=== PATIENT | female | born 1970 | race Caucasian/White ===

== ENCOUNTER 2016-07-16 12:22 | Emergency (ER) | payer OTHER ==
[~2016-07-16] VITALS: Ht 162.6 cm; Wt 81.6 kg
[~2016-07-16 12:22] MED LIST: ALBUTEROL0.09 MG/A1 INH; CIPRO500 M1 PO; LEVAQUIN500 MG PO; PREDNISONE 10MG10 M1 PO; PREDNISONE50 MG PO; PRILOSEC20 M1 PO; SUPRAX200 MG PO; TESSALON PERLE100 MG PO; ZITHROMAX Z-PA250 M1 PO; ZOFRAN ODT4 M1 PO
[2016-07-16 12:45] VITALS: BP 106/75
--- NOTE | 2016-07-16 13:08 | ED INFLUENZA/URI COMPLAINT ---
History of Present Illness General Chief Complaint: General Adult Stated Complaint: DOESNT FEEL GOOD Source: patient Exam Limitations: no limitations Vital Signs & Intake/Output Vital Signs & Intake/Output Vital Signs Date Time Temp Pulse Resp B/P Pulse O2 O2 Flow FiO2 Ox Delivery Rate 07/16 1245 96.6 110 20 106/75 99 Room Air Room Air Allergies Coded Allergies: codeine (Mild, rash 08/29/15) Sulfa (Sulfonamide Antibiotics) (08/29/15) ciprofloxacin (From CIPRO) (HIVES 09/06/15) Reconcile Medications Albuterol Sulfate (Albuterol Sulfate Hfa) 0.09 MG/Actuation KAUSHIK 2 PUFF INH Q4- 6 PRN PRN SHORTNESS OF BREATH 90 MCG PER PUFF Albuterol Sulfate (Albuterol Sulfate Hfa) 90 MCG HFA.AER.AD 2 PUFF INH Q4-6 PRN PRN SHORTNESS OF BREATH 90 MCG PER PUFF Azithromycin (Zithromax Z-Krzysztof) 250 MG CAP 1 DP PO AD bronchitis 2 the first day followed by 1 for days 2-5 Benzonatate (Tessalon Perle) 100 MG SGL 1 CAP PO TID PRN COUGH Benzonatate (Tessalon Perle) 100 MG CAPSULE 1 TAB PO TID PRN COUGH Cefixime (Suprax) 200 MG TAB.CHEW 1 TAB PO DAILY pyelonephritis Ciprofloxacin HCl (Cipro) 500 MG TABLET 1 TAB PO BID UROLOGIC Levofloxacin (Levaquin) 500 MG TAB 1 TAB PO QDAY BRONCHITIS Omeprazole (Prilosec) 20 MG CAPSULE.DR 1 CAP PO DAILY GERD Ondansetron (Zofran Odt) 4 MG TAB.RAPDIS 1-2 TAB PO Q8H PRN NAUSEA Prednisone 50 MG TAB 1 TAB PO QDAY QDAY Prednisone 10 MG TABLET 1 TAB PO DAILY BRONCHITIS 4 TABS PO X 3 DAYS 3 TABS PO X 3 DAYS 2 TABS PO X 3 DAYS 1 TAB PO X 3 DAYS Triage Note: PT TO ED WITH C/O COUGH AND CONGESTION, SEEN AT [facility] CLINIC, GIVEN Z-PACK, HAS 1 PILL LEFT, NOW THEY CALLED IN PREDNISONE AND COUGH MEDS, HASN'T PICKED IT UP LEFT. Triage Nurses Notes Reviewed? yes Onset: Gradual Duration: constant Timing: recent history Severity: moderate Severity Numbers: 5 HPI: Patient is a 46-year-old female who presents emergency room stating that for the past week patient has been complaining of nasal congestion and head congestion cough and low-grade fever body aches chills in which she was administered a azithromycin pack which she is on her last day where she feels no better. Negative sick contacts. (NATALEE HOANG) Past History Travel History Traveled to [place] past 21 day No Medical History Any Pertinent Medical History? see below for history Neurological: NONE EENT: NONE Cardiovascular: hyperlipidemia Respiratory: NONE Gastrointestinal: GERD Hepatic: NONE Renal: urinary tract infections Musculoskeletal: NONE Psychiatric: NONE Endocrine: NONE Blood Disorders: NONE Cancer(s): NONE CLINICAL SUPERVISOR/Reproductive: NONE Surgical History Surgical History: NONE Psychosocial History What is your primary language Japanese Tobacco Use: Current Daily Use Daily Tobacco Use Amount/Type: => 5 Cigarettes daily ETOH Use: denies use Illicit Drug Use: denies illicit drug use Family History Hx Contributory? No (NATALEE HOANG) Review of Systems Review of Systems Constitutional: Reports: see HPI, chills, fever. EENTM: Reports: see HPI, nasal congestion. Respiratory: Reports: see HPI, cough. Cardiovascular: Reports: see HPI. Denies: chest pain. GI: Reports: no symptoms. Genitourinary: Reports: no symptoms. Musculoskeletal: Reports: no symptoms. Skin: Reports: no symptoms. Neurological/Psychological: Reports: no symptoms. Hematologic/Endocrine: Reports: no symptoms. Immunologic/Allergic: Reports: no symptoms. All Other Systems: Reviewed and Negative (NATALEE HOANG) Physical Exam Physical Exam General Appearance: no apparent distress, comfortable Head: atraumatic Eyes: Bilateral: normal appearance. Ears, Nose, Throat: nasal congestion Neck: normal inspection Respiratory: no respiratory distress Back: normal inspection Extremities: normal inspection Neurologic/Psych: no motor/sensory deficits Skin: intact, normal color Core Measures Severe Sepsis Present: No Septic Shock Present: No (NATALEE HOANG) Progress Differential Diagnosis: influenza, meningitis, neutropenia, otitis, pneumonia, pharyngitis, sinusitis Plan of Care: During the encounter patient received a phone call in which there was significant concern and distressed noted from patient and which she states "I need to leave the hospital immediately because my boyfriend is having a heart attack" where patient then eloped and walked out and apologized Initial ED EKG: none (NATALEE HOANG) Departure Departure Disposition: ER WALKOUT Condition: Stable Clinical Impression Primary Impression: Upper respiratory disease Referrals: VELVET PARRA,IVANIA Rodríguez (PCP/Family) Additional Instructions: Patient had eloped prior to discharge instructions Departure Forms: Customer Survey General Discharge Information (NATALEE HOANG) PA/STRIPPER PRELIMINARY Co-Sign Statement Statement: ED Attending supervision documentation- [] I saw and evaluated the patient. I have also reviewed all the pertinent lab results and diagnostic results. I agree with the findings and the plan of care as documented in the PA's/STRIPPER PRELIMINARY's documentation. [X] I have reviewed the ED Record and agree with the PA's/STRIPPER PRELIMINARY's documentation. [] Additions or exceptions (if any) to the PAs/STRIPPER PRELIMINARY's note and plan are summarized below: [] (COLIN PARRA,ARABELLA Ricks)
== END 2016-07-16 13:25 ==
LOC: ERH 12:22
DX: J06.9 Acute upper respiratory infection, unspecified (principal); Z72.0 Tobacco use
CPT/HCPCS: 99281

== ENCOUNTER 2016-12-01 07:47 | Emergency (ER) | payer OTHER ==
[~2016-12-01] VITALS: Ht 162.6 cm; Wt 90.7 kg
[2016-12-01 07:50] VITALS: BP 125/90
--- NOTE | 2016-12-01 07:57 | ED NECK/BACK PAIN COMPLAINT ---
History of Present Illness General Chief Complaint: Low Back Pain/Injury Stated Complaint: BACK PAIN Source: patient, old records Exam Limitations: no limitations Vital Signs & Intake/Output Vital Signs & Intake/Output Vital Signs Date Time Temp Pulse Resp B/P B/P Pulse O2 O2 Flow FiO2 Mean Ox Delivery Rate 12/01 0750 97.7 100 20 125/90 98 Room Air Allergies Coded Allergies: codeine (Mild, rash 08/29/15) Sulfa (Sulfonamide Antibiotics) (UNKNOWN 12/01/16) Reconcile Medications Albuterol Sulfate (Albuterol Sulfate Hfa) 0.09 MG/Actuation KAUSHIK 2 PUFF INH Q4- 6 PRN PRN SHORTNESS OF BREATH 90 MCG PER PUFF Albuterol Sulfate (Albuterol Sulfate Hfa) 90 MCG HFA.AER.AD 2 PUFF INH Q4-6 PRN PRN SHORTNESS OF BREATH 90 MCG PER PUFF Azithromycin (Zithromax Z-Krzysztof) 250 MG CAP 1 DP PO AD bronchitis 2 the first day followed by 1 for days 2-5 Benzonatate (Tessalon Perle) 100 MG SGL 1 CAP PO TID PRN COUGH Benzonatate (Tessalon Perle) 100 MG CAPSULE 1 TAB PO TID PRN COUGH Cefixime (Suprax) 200 MG TAB.CHEW 1 TAB PO DAILY pyelonephritis Ciprofloxacin HCl (Cipro) 500 MG TABLET 1 TAB PO BID UROLOGIC Levofloxacin (Levaquin) 500 MG TAB 1 TAB PO QDAY BRONCHITIS Omeprazole (Prilosec) 20 MG CAPSULE.DR 1 CAP PO DAILY GERD Ondansetron (Zofran Odt) 4 MG TAB.RAPDIS 1-2 TAB PO Q8H PRN NAUSEA Prednisone 50 MG TAB 1 TAB PO QDAY QDAY Prednisone 10 MG TABLET 1 TAB PO DAILY BRONCHITIS 4 TABS PO X 3 DAYS 3 TABS PO X 3 DAYS 2 TABS PO X 3 DAYS 1 TAB PO X 3 DAYS Triage Note: PT TO ED C/O LEFT SIDED BACK PAIN X 3 MONTHS. PT HAS SEEN MD'S AND PAIN MANAGEMENT. PT STATES PAIN HAS GOTTEN WORSE OVER THE LAST FEW DAYS. DENIES ANY NEW INJURY. Triage Nurses Notes Reviewed? yes Onset: Gradual Duration: getting worse Timing: recent history Location: lumbar spine, paraspinous muscles Radiation: buttocks, upper legs, lower legs, feet Loss of Consciousness: no loss of consciousness HPI: Patient is a 46-year-old female who presents to emergency room with concerns of low back pain where she states approximate 3 months ago she was lifting heavy objects where she had acute onset of pain at the time or pain persisted patient states approximately 2 months ago she received a MRI showing bulging disks in which patient has been followed by her primary care doctor in which NSAIDs gabapentin and narcotics have been prescribed patient with improvement of pain however in past 3 days symptoms have worsened. Patient has been complaining of persistent left lower extremity radiating pain and burning sensation in the past 2 months. Patient denies any bowel or bladder incontinence. Patient denies any recent trauma or falls Patient denies any fever chills Patient currently is receiving physical therapy PATIENT: ALTA GIRALDO PRESENT AGE: 46 PATIENT ACCOUNT NO: [id number] : 69 LOCATION: [facility].MRI ORDERING PHYSICIAN: IVANIA VERDIN MD SERVICE DATE: 10/05/16 EXAM TYPE: MRI - MRI-LUMBAR SPINE EXAMINATION: MR LUMBAR SPINE WITHOUT CONTRAST CLINICAL INFORMATION: Low back pain radiating down left leg. COMPARISON: X-ray from 03/02/2016. TECHNIQUE: MRI of the lumbar spine without contrast was obtained using routine sequences. FINDINGS: VERTEBRAL BODIES AND PARASPINAL STRUCTURES: The marrow signal is fairly homogeneous. There are no compression fractures or subluxations. There is mild disc space narrowing and endplate spurring at L2-L3. The paraspinal soft tissues are unremarkable. The imaged bony pelvis appears normal. CONUS MEDULLARIS AND CAUDA EQUINA: Normal, terminating at the level of T12-L1. No lower cord signal abnormality is seen. The cauda equina roots appear normal. SPINAL LEVELS: L1-L2: No disc pathology. No central canal stenosis or foraminal narrowing. L2-L3: Mild loss of disc height and generalized disc bulge with mild facet arthropathy. No central canal stenosis. Bulging disc minimally encroaches upon the left neural foramen. L3-L4: Broad-based left lateral disc protrusion which mildly encroaches upon the left subarticular zone and abuts the left L4 nerve root. Bulging disc mildly encroaches upon the left neural foramen. No central canal stenosis. [id number] facet arthropathy. L4-L5: Reduced intradiscal signal and diffuse disc bulge with a left inferior neural foraminal protrusion. Mild left foraminal encroachment. Bulging disc contacts the left L5 nerve root in the left subarticular zone. Very mild narrowing of the central canal. Moderate facet arthropathy and thickening of the ligamentum flavum. L5-S1: No significant disc pathology. Moderate hypertrophic facet arthrosis. No central canal stenosis or foraminal narrowing. IMPRESSION: Mild spondylosis at L2-L3 with a generalized disc bulge mildly encroaching upon the left neural foramen. Broad-based left lateral disc protrusion at L3-L4 abutting the left L4 nerve root in the subarticular zone. Mild concentric disc bulge and hypertrophic facet arthropathy at L4-L5 with a left inferior neural foraminal disc protrusion. Disc bulge contacts the left L5 nerve root in the subarticular zone. Slight narrowing of the central canal. (NATALEE HOANG) Past History Travel History Traveled to [place] past 21 day No Medical History Any Pertinent Medical History? see below for history Neurological: NONE EENT: NONE Cardiovascular: hyperlipidemia Respiratory: NONE Gastrointestinal: GERD Hepatic: NONE Renal: urinary tract infections Musculoskeletal: chronic back pain Psychiatric: NONE Endocrine: NONE Blood Disorders: NONE Cancer(s): NONE EQUIPMENT MECHANIC SPECIALIST/Reproductive: NONE Surgical History Surgical History: NONE Psychosocial History What is your primary language Khmer Tobacco Use: Current Daily Use Daily Tobacco Use Amount/Type: =< 4 Cigarettes daily ETOH Use: denies use Illicit Drug Use: denies illicit drug use Family History Hx Contributory? No (NATALEE HOANG) Review of Systems Review of Systems Constitutional: Reports: no symptoms. Eyes: Reports: no symptoms. Ears, Nose, Throat, Mouth: Reports: no symptoms. Respiratory: Reports: no symptoms. Cardiovascular: Reports: no symptoms. Gastrointestinal/Abdominal: Reports: no symptoms. Musculoskeletal: Reports: see HPI, back pain, muscle pain, muscle stiffness. Skin: Reports: no symptoms. Neurological/Psychological: Reports: no symptoms. All Other Systems: Reviewed and Negative (NATALEE HOANG) Physical Exam Physical Exam General Appearance: no apparent distress, alert, comfortable Neck: normal inspection, supple, full range of motion Comments: Well-developed well-nourished person in no acute distress HEENT: Normal EENT exam, Neck: Supple, no lymphadenopathy, normal range of motion without pain or tenderness Back: Left lateral lumbar muscular point tenderness, no central spinous tenderness, decreased active range of motion noted Abdomen: Soft, nontender nondistended, no appreciable organomegaly. Normal bowel sounds. No ascites Extremity: No edema, no calf tenderness to palpation, normal and equal pulses. Bilateral lower extremity myotomes dermatomes DTRs intact Positive straight leg raise noted at 45 Neuro: Alert oriented x3, motor sensory normal, Skin: No appreciable rash on exposed skin, skin is warm and dry. Psych: Mood and affect is normal, memory and judgment is normal. (NATALEE HOANG) Progress Differential Diagnosis: C spine injury, carotid dissection, cauda equina syn, herniated disc, myofascial strain, pyelo/UTI, sciatica, spinal cord inj, thoracic outlet syn, T/L spine injury, ureterolithiasis Plan of Care: Current Medications Sig/Pablo Start time Last Medication Dose Stop Time Status Admin Dexamethasone 8 MG ONCE ONE 12/01 814 UNVr (Decadron) 12/02 815 NO CONCERN OF CUADA EQUINA Patient had normal steady gait bilateral lower extremity was neurovascularly intact. Patient will be treated for concerns of herniated disc in lumbar radiculopathy. Patient was strongly advised to follow up and establish pain management. No concerns at this time a discitis or spinal abscess (NATALEE HOANG) Departure Departure Disposition: HOME OR SELF CARE Condition: Stable Clinical Impression Primary Impression: Herniated lumbar intervertebral disc Secondary Impressions: Lumbar radiculopathy Referrals: VELVET PARRA,IVANIA Rodríguez (PCP/Family) SADIA PARRA,YANN Arechiga Additional Instructions: As discussed begin icing the area directly 20 minutes every 2 hours. You have been given an intramuscular injection of Decadron for inflammation in the emergency room, continue your previously prescribed pain medications. Today follow up and establish a [facility] and if no better in one week follow-up with orthopedic DR. MCCULLOUGH for further evaluation treatment. Avoid lifting heavy objects and bending forward with YOUR back. If symptoms worsen return to emergency room Departure Forms: Customer Survey General Discharge Information (NATALEE HOANG) PA/ADJUSTER ARBITRATOR Co-Sign Statement Statement: ED Attending supervision documentation- I saw and evaluated the patient. I have also reviewed all the pertinent lab results and diagnostic results. I agree with the findings and the plan of care as documented in the PA's/ADJUSTER ARBITRATOR's documentation. x I have reviewed the ED Record and agree with the PA's/ADJUSTER ARBITRATOR's documentation. [] Additions or exceptions (if any) to the PAs/ADJUSTER ARBITRATOR's note and plan are summarized below: [] (JAYLA PARRA,LEXII)
== END 2016-12-01 08:21 ==
LOC: ERH 07:47
DX: M51.26 Other intervertebral disc displacement, lumbar region (principal); M54.16 Radiculopathy, lumbar region
CPT/HCPCS: 96372